=== PATIENT | male | born 1950 | race Caucasian/White ===

== ENCOUNTER → 2016-08-30 | Outpatient (CLI) | payer BC, OTHER ==
--- NOTE | 2016-08-30 07:56 | PCM.PRNOTE ---
- Free Text/Narrative Note: Lexiscan Indication 65M CAD RCA PCI Patient was supervised today during infusion portion of the stress test. The patient received Regadenoson 0.4 mg IV and nuclear agent using standard protocol. Sestamibi Tm99 25 Mci was gievn afterwards Baseline blood pressure is 111/75 with a heart rate [address] abnormalities, Vital signs at injection: Peak blood pressure 148/85 with a heart rate of 81 Vital signs at 4 minutes post injection: Peak blood pressure 127/78 with a heart rate of 83 EKG SR without further ST changes Patient complains of breathless spontaneously resolved Adverse effects from Kyung scan none Test done due to end of protocol Impression 1. electrocardiographically nondiagnostic for ischemia due to chemical protocol 2. nuclear imaging pending
--- NOTE | 2016-08-30 14:16 | NM ---
EXAMINATION: Nuclear medicine myocardial perfusion study HISTORY: Stress test. PROCEDURE: Following intravenous administration of 0.4 mg of Lexiscan and 26.9 mCi of technetium 99m sestamib i, stress SPECT images including gating imaging was performed. FINDINGS: Stress myocardial SPECT images demonstrates mildly decreased perfusion along the inferior base. The degree this likely represents diaphragmatic attenuation. Review of gated images demonstrates normal wall motion, contractility and wall thickening. The left ventricular ejection fraction is 66 %. The left ventricular chamber size is normal. IMPRESSION: 1. Mildly decreased perfusion along the inferior wall, most likely diaphragmatic attenuation. If con firmation is needed correlate with rest imaging. 2. Normal ventricular chamber size and function with ejection fraction of 66 %.
== END ==
LOC: MW.NM 06:27
DX: I25.10 Atherosclerotic heart disease of native coronary artery without angina pectoris (principal)
CPT/HCPCS: 78451; 93017; A9500; J2785

== ENCOUNTER → 2016-09-05 | Outpatient (CLI) | payer OTHER ==
--- NOTE | 2016-09-07 16:02 | ECHO ---
The echocardiogram report can be seen in this patient's EMR in the Reports section. ALMITA
== END ==
LOC: MW.US 10:26
DX: I25.10 Atherosclerotic heart disease of native coronary artery without angina pectoris (principal)
CPT/HCPCS: 93306

== ENCOUNTER 2017-06-25 10:14 | Emergency (ER) | payer OTHER, BC ==
--- NOTE | 2017-06-25 12:02 | EDM.PDOC ---
ED HPI GENERAL MEDICAL PROBLEM - General Chief Complaint: Lower Extremity Injury/Pain Stated Complaint: LEFT LEG PAIN Time Seen by Provider: 06/25/17 12:00 Source of Information: Reports: Patient - History of Present Illness INITIAL COMMENTS - FREE TEXT/NARRATIVE: HISTORY AND PHYSICAL: History of present illness: [Patient presents from [facility] with pain left lower extremity hip knee, previous ORIF in 2002 after a slip and fall on ice with robby placement, he has been seen through the [place] [facility] with negative x-ray last week he has increasing pain and inability to bear weight to denies any new or recent trauma] Patient has pain with palpation along the iliotibial band not necessarily hip were femur again there is no known injury there is no increase in activity actually the patient is quite sedentary, he has no pain at rest only pain with weightbearing No fever nausea vomiting chills sweats no chest pain shortness breath headache dizziness palpitation about a urine symptoms Review of systems: As per history of present illness and below otherwise all systems reviewed and negative. Past medical history: As per history of present illness and as reviewed below otherwise noncontributory. Surgical history: As per history of present illness and as reviewed below otherwise noncontributory. Social history: No reported history of drug or alcohol abuse. Family history: As per history of present illness and as reviewed below otherwise noncontributory. Physical exam: HEENT: Atraumatic, normocephalic, pupils reactive, negative for conjunctival pallor or scleral icterus, mucous membranes moist, throat clear, neck supple, nontender, trachea midline. Lungs: Clear to auscultation, breath sounds equal bilaterally, chest nontender. Heart: S1S2, regular, negative for clicks, rubs, or JVD. Abdomen: Soft, nondistended, nontender. Negative for masses or hepatosplenomegaly. Negative for costovertebral tenderness. Pelvis: Stable nontender. Genitourinary: Deferred. Rectal: Deferred. Extremities: Atraumatic, negative for cords or calf pain. Neurovascular unremarkable. Pain along the left iliotibial band I can reproduce with palpation of the ITB Neuro: Awake, alert, oriented. Cranial nerves II through XII unremarkable. Cerebellum unremarkable. Motor and sensory unremarkable throughout. Exam nonfocal. Diagnostics: [CT hip and femur on the left no contrast CBC uric acid CRP ] Therapeutics: [Heat ice whichever gains most benefit Ibuprofen 400 mg 3 times daily [place] Stop tramadol Orthopedic referral eval and treat possibly consider steroid injection ] Impression: [Previous ORIF left hip and femur 2002] Pain along the iliotibial band Definitive disposition and diagnosis as appropriate pending reevaluation and review of above. Left Leg Pain Score (Numeric/FACES): 8 - Related Data Allergies Allergy/AdvReac Type Severity Reaction Status Date / Time tetracycline Allergy Other Verified 06/25/17 11:12 Home Meds: Home Meds Losartan [Cozaar] 25 mg PO DAILY 06/25/17 [History] traMADol [Ultram] 50 mg PO Q4H PRN 06/25/17 [History] Past Medical History Cardiovascular History: Reports: Hypertension Musculoskeletal History: Reports: Fracture Social & Family History - Tobacco Use Smoking Status *Q: Former Smoker Used Tobacco, but Quit: Yes Month Tobacco Last Used: dec 2016 - Caffeine Use Caffeine Use: Reports: Coffee, Tea - Recreational Drug Use Recreational Drug Use: No Review of Systems - Review of Systems Review Of Systems: ROS reveals no pertinent complaints other than HPI. ED EXAM, GENERAL - Physical Exam Exam: See Below Course - Vital Signs Last Recorded V/S: Last Vital Signs Temp 97.4 F 06/25/17 11:18 Pulse 80 06/25/17 11:18 Resp 18 06/25/17 11:18 BP 144/81 H 06/25/17 11:18 Pulse Ox 94 L 06/25/17 11:18 - Orders/Labs/Meds Labs: Laboratory Tests 06/25/17 06/25/17 06/25/17 Range/Units 13:28 13:28 13:28 WBC 8.87 (4.0-11.0) K/uL RBC 4.89 (4.50-5.90) M/uL Hgb 15.8 (13.0-17.0) g/dL Hct 46.3 (38.0-50.0) % MCV 94.7 (80.0-98.0) fL MCH 32.3 H (27.0-32.0) pg MCHC 34.1 (31.0-37.0) g/dL RDW Std Deviation 46.5 (28.0-62.0) fl RDW Coeff of Orly 14 (11.0-15.0) % Plt Count 243 (150-400) K/uL MPV 10.90 (7.40-12.00) fL Add Manual Diff YES Neutrophils % (Manual) 54 (48.0-80.0) % Band Neutrophils % 1 % Lymphocytes % (Manual) 31 (16.0-40.0) % Monocytes % (Manual) 12 (0.0-15.0) % Eosinophils % (Manual) 2 (0.0-7.0) % Nucleated RBC % 0.0 /100WBC Absolute Seg Neuts 4.8 (1.4-5.7) Band Neutrophils # 0.1 Lymphocytes # (Manual) 2.7 H (0.6-2.4) Monocytes # (Manual) 1.1 H (0.0-0.8) Eosinophils # (Manual) 0.2 (0.0-0.7) Nucleated RBCs # 0 K/uL Uric Acid 5.2 (2.1-7.4) mg/dL C-Reactive Protein 1.33 H (0.0-0.5) mg/dL Departure - Departure Time of Disposition: 14:54 Disposition: Home, Self-Care 01 Condition: Good Clinical Impression: Tendinitis - Discharge Information Referrals: PCP,None [Primary Care Provider] - Forms: ED Department Discharge Additional Instructions: Ibuprofen 400 mg 3 times daily 7-10 days Ice or heat whichever gains most benefit icy-hot patches may benefit Discontinue tramadol while on [place] which will be provided ER referral to orthopedist for evaluation and treatment consideration of steroid injection [facility] [address], [address] [place] [address] my orthopedic The following information is given to patients seen in the emergency department who are being discharged to home. This information is to outline your options for follow-up care. We provide all patients seen in our emergency department with a follow-up referral. The need for follow-up, as well as the timing and circumstances, are variable depending upon the specifics of your emergency department visit. If you don't have a primary care physician on staff, we will provide you with a referral. We always advise you to contact your personal physician following an emergency department visit to inform them of the circumstance of the visit and for follow-up with them and/or the need for any referrals to a consulting specialist. The emergency department will also refer you to a specialist when appropriate. This referral assures that you have the opportunity for follow-up care with a specialist. All of these measure are taken in an effort to provide you with optimal care, which includes your follow-up. Under all circumstances we always encourage you to contact your private physician who remains a resource for coordinating your care. When calling for follow-up care, please make the office aware that this follow-up is from your recent emergency room visit. If for any reason you are refused follow-up, please contact the [facility] emergency department at and asked to speak to the emergency department charge nurse.
--- NOTE | 2017-06-25 13:13 | CT ---
EXAMINATION: CT femur HISTORY: Pain COMPARISON: None TECHNIQUE: Axial CT scan images obtained through the left femur without contrast. Coronal and sagitta l reconstructions obtained. FINDINGS: There is lateral plate fixation of the proximal left femur with a femoral neck component no denisha. Bone mineralization otherwise appears osteopenic. There is no definite fracture or acute osseous abnormality. Left hip joint spaces appear preserved. No suprapatellar joint effusion. Mild vascular calcifications are present. Adjacent soft tissues appear otherwise normal. IMPRESSION: 1. Hardware fixation of the proximal left femur. 2. No acute osseous abnormality identified.
== END 2017-06-25 15:35 | disposition home or self-care (01) ==
LOC: MW.ED 10:14
DX: M77.9 Enthesopathy, unspecified (principal); I10 Essential (primary) hypertension; Z87.891 Personal history of nicotine dependence; Z79.899 Other long term (current) drug therapy; Z88.1 Allergy status to other antibiotic agents; Z98.890 Other specified postprocedural states
CPT/HCPCS: 36415; 73700-26-LT; 73700-LT; 84550; 85025; 86140; 99283; 99284-25